=== PATIENT | female | born 1995 | race Caucasian/White ===

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

== ENCOUNTER 2021-01-04 20:03 | Outpatient (CLI) | payer MEDICAID ==
[~2021-01-04] VITALS: Ht 170.2 cm; Wt 125.9 kg
[2021-01-04] MEDS ORDERED: SERT25TA PO (20:11)
[2021-01-04 20:20] VITALS: BP 122/76
[2021-01-04 20:21] VITALS: BP 122/76
[2021-01-04 20:22] VITALS: BP 122/76
[2021-01-04] MEDS ORDERED: ACETAMINOPHEN 500 MG TAB (TYLENOL) ONE (21:11)
[2021-01-04] MEDS ORDERED: CYCLOBENZAPRINE 10 MG (FLEXERIL) TAB ONE (21:11)
[2021-01-04] MEDS ORDERED: ACETAMINOPHEN 500 MG TAB (TYLENOL) PO ONE (21:15)
[2021-01-04] MEDS ORDERED: CYCLOBENZAPRINE 10 MG (FLEXERIL) TAB PO SCH (21:15)
--- NOTE | 2021-01-04 21:22 | Discharge Inst-Simple/Standard ---
Discharge Inst-Standard Reconcile Patient Problems Problems Reviewed?: Yes Discharge Medications New, Converted or Re-Newed RX: Call to Patients Pharmacy Patient Instructions/Follow Up Plan of Care/Instructions/FU: Continue follow-up with OB as scheduled. Report to nearest emergency departmnt for vaginal bleeding, loss of fluid per vagina, decreased/absent movements, or other concerns Activity as Tolerated: Yes Discharge Diet: No Restrictions Return to The Hospital For: Report to nearest emergency departmnt for vaginal bleeding, loss of fluid per vagina, decreased/absent movements, or other concerns KIRILL TERESA MD Jan 04, 2021 21:22
[2021-01-04 21:24] LABS: CLARITY,URINE CLEAR; COLOR,URINE YELLOW; GLUCOSE, URINE (UA) NEGATIVE (NEGATIVE); KETONES,URINE 1+ (NEGATIVE); LEUKOCYTE ESTERASE ,URINE NEGATIVE (NEGATIVE); NITRITE,URINE NEGATIVE (NEGATIVE); PH,URINE 6.5 (5-9); PROTEIN,URINE TRACE (NEGATIVE)
--- NOTE | 2021-01-04 21:31 | OB Triage Report ---
Standard Progress Note Progress Notes/Assess & Plan Date Seen by a Provider: Jan 04, 2021 Time Seen by a Provider: 21:00 Expected Date of Delivery: Apr 03, 2021 Gestational Age in Weeks: 27 Gestational Age in Days: 2 LMP/YAMILA Comment: YAMILA: 04/03/2021 Progress/Assessment & Plan HPI: Patient is a 25 yo who presents for lower back and abdominal pain. Reports fall on her bottom 5 days ago on a slippery floor. No abdominal trauma. Lower back pain has been persistent since that time. However, she began noting lower back pain that radiates to her upper abdomen for the past 3 days. Pain feels like contractions, and occurs about every 10 minutes. She denies abnormal vaginal discharge, vaginal bleeding, or LOF. Denies dysuria or hematuria. Notes usual movements. Physical Exam Vital Signs 01/04/21 01/04/21 20:21 20:22 Temp 36.7 Pulse 100 Resp 18 B/P (MAP) 122/76 (91) Pulse Ox 98 O2 Delivery Room Air Gen: resting well in bed. No apparent distress Resp: normal effort, symmetric chest rise Heart: Normal rate and peripheral perfusion FHR: 150 bpm, mod mitra, + accels, int variable decels consistent with GA SVE: //hi Laboratory Tests Test 01/04/21 21:10 Range/Units Urine Color YELLOW Urine Clarity CLEAR Urine pH 6.5 5-9 Urine Specific [place] 1.025 H 1.016-1.022 Urine Protein TRACE H NEGATIVE Urine Glucose (UA) NEGATIVE NEGATIVE Urine Ketones 1+ H NEGATIVE Urine Nitrite NEGATIVE NEGATIVE Urine Bilirubin 2+ H NEGATIVE Urine Urobilinogen 1.0 < = 1.0 MG/DL Urine Leukocyte Esterase NEGATIVE NEGATIVE Urine RBC (Auto) NEGATIVE NEGATIVE Urine RBC RARE /HPF Urine WBC 0-2 /HPF Urine Squamous Epithelial Cells 0-2 /HPF Urine Crystals PRESENT H /LPF Urine Amorphous Sediment FEW NEDA URATES H /LPF Urine Bacteria TRACE /HPF Urine Casts NONE /LPF Urine Mucus SMALL H /LPF Urine Culture Indicated NO A/P: 25 yo with IUP at 27w2d who presents for lower back and abdominal pain - SVE as above without concern for labor - Pain improved with Tylenol/Flexeril in triage - UA as above + ketones - Given recent fall and onset of symptoms, likely musculoskeletal pain - Supportive management discussed including Tylenol PRN, warm bath, rest. Encouraged adequate PO hydration - Prescription for Flexeril called to pt pharmacy - Pt discharged with instructions for continued outpatient follow-up with OB. Re turn precautions provided Final Diagnosis Musculoskeletal pain Back pain Abdominal pain KIRILL TERESA MD Jan 04, 2021 21:31
[2021-01-04 22:15] LABS: AMORPHOUS SEDIMENT,UR FEW AMOR URATES /LPF; BACTERIA,URINE TRACE /HPF; RBC,URINE RARE /HPF; SQUAMOUS EPITHELIAL CELL,UR 0-2 /HPF; WBC,URINE 0-2 /HPF
[2021-01-04 22:40] VITALS: BP 121/69
[2021-01-05 10:03] LABS: BILIRUBIN,URINE 2+ (NEGATIVE)
== END 2021-01-04 22:52 | disposition home or self-care (01) ==
LOC: WSo 20:03 → LDRP 20:03 → WSo 22:52
PROVIDERS: ATTEND Obstetrics & Gynecology
DX: O26.892 Other specified pregnancy related conditions, second trimester (principal); M54.50 Low back pain, unspecified; R10.9 Unspecified abdominal pain; Z3A.23 23 weeks gestation of pregnancy; W19.XXXA Unspecified fall, initial encounter
CPT/HCPCS: 81000; G0463; 99214

== ENCOUNTER 2021-12-12 17:12 | Emergency (ER) | payer MEDICAID ==
[~2021-12-12] VITALS: Ht 170 cm; Wt 131.8 kg
[~2021-12-12 17:12] MED LIST changes: +SERT25TA PO
--- NOTE | 2021-12-12 17:29 | ED Abdominal Pain ---
General Chief Complaint: OB < 20 WEEKS Stated Complaint: 8 WKS ,N/V,HEADACHE,BODY ACHES Nursing Triage Note: ARRIVED VIA AMB TO ROOM 07 WITH COMPLAINTS OF N/V AND BODY ACHES STARTING TODAY. PT IS 8 WEEKS GESTATION. History of Present Illness Date Seen by Provider: Dec 12, 2021 Time Seen by Provider: 17:29 Initial Comments Patient reports that she has had nausea, vomiting and body aches that started today. Is currently 8 weeks . . Denies complaints. Has been unable to keep much down today. Denies recent sick contacts that she is aware of. Denies exposure to COVID. Timing/Duration: 1 Day Severity/Quality: Mild Location: Epigastric Radiation: No Radiation Activities at Onset: None Modifying Factors: Worsens With Eating; Improves With Resting Associated Symptoms: Fever/Chills (possible fever earlier); No Fatigue, No Headache; Nausea/Vomiting Allergies and Home Medications Allergies Coded Allergies: No Known Drug Allergies (Unverified , 08/06/15) Patient Home Medication List Home Medication List Reviewed: Yes Ondansetron (Ondansetron Odt) 4 Mg Tab.rapdis, 4 MG PO Q6H PRN for NA USEA/VOMITING Prescribed by: Terrie Bhatt on 12/12/211956 Discontinued Medications Sertraline HCl (Zoloft) 25 Mg Tablet, 25 MG PO, (Reported) Discontinued Reason: No Longer Taking Entered as Reported by: AGUSTIN STEIN on 01/04/212010 Last Action: Discontinued Review of Systems Review of Systems Constitutional: chills; No dizziness, No fever; malaise EENTM: No Symptoms Reported Respiratory: No Symptoms Reported Cardiovascular: No Symptoms Reported Gastrointestinal: Abdominal Pain; Denies Diarrhea; Nausea, Vomiting Genitourinary: Denies Burning, Denies Frequency, Denies Urgency Musculoskeletal: No back pain; joint pain, muscle pain Skin: no symptoms reported Psychiatric/Neurological: Denies Headache, Denies Tingling, Denies Weakness All Other Systems Reviewed Negative Unless Noted: Yes Past Eyensjl-Vzbhfi-Dpebaw Hx Patient Social History Tobacco Use?: No Substance use?: No Alcohol Use?: No Past Medical History Appendectomy, Gallbladder Expected Date of Delivery: Jul 22, 2022 Reproductive Disorders: No Female Reproductive Disorders: Denies Family Medical History Reviewed Nursing Family Hx Hypercholesterolemia 19 FATHER Hypertension 19 FATHER Physical Exam Vital Signs Vital Signs - First Documented 12/12/21 17:15 Temp 36.4 Pulse 101 Resp 16 B/P (MAP) 150/81 (104) Pulse Ox 97 O2 Delivery Room Air Capillary Refill : Less Than 3 Seconds Height/Weight/BMI Height: 5'6.00" Weight: 208lbs. 0.0oz. 94.647165qf; 45.00 BMI Method:Stated General Appearance: WD/WN, no apparent distress Neck: non-tender, full range of motion, supple, normal inspection Respiratory: chest non-tender, lungs clear, normal breath sounds, no respiratory distress, no accessory muscle use Cardiovascular: regular rate, rhythm, no edema Gastrointestinal: normal bowel sounds, soft, tenderness (epigastric) Extremities: normal range of motion, non-tender Back: normal inspection Neurologic/Psychiatric: alert, normal mood/affect, oriented x 3 Skin: normal color, warm/dry Progress/Results/Core Measures Results/Orders Lab Results Laboratory Tests Test 12/12/21 17:55 12/12/21 19:10 Range/Units White Blood Count 8.6 4.3-11.0 10^3/uL Red Blood Count 4.79 3.80-5.11 10^6/uL Hemoglobin 12.4 11.5-16.0 g/dL Hematocrit 37 35-52 % Mean Corpuscular Volume 78 L 80-99 fL Mean Corpuscular Hemoglobin 26 25-34 pg Mean Corpuscular Hemoglobin Concent 33 32-36 g/dL Red Cell Distribution Width 13.8 10.0-14.5 % Platelet Count 243 130-400 10^3/uL Mean Platelet Volume 9.8 9.0-12.2 fL Immature Granulocyte % (Auto) 0 % Neutrophils (%) (Auto) 78 H 42-75 % Lymphocytes (%) (Auto) 15 12-44 % Monocytes (%) (Auto) 6 0-12 % Eosinophils (%) (Auto) 2 0-10 % Basophils (%) (Auto) 0 0-10 % Neutrophils # (Auto) 6.7 1.8-7.8 10^3/uL Lymphocytes # (Auto) 1.3 1.0-4.0 10^3/uL Monocytes # (Auto) 0.5 0.0-1.0 10^3/uL Eosinophils # (Auto) 0.2 0.0-0.3 10^3/uL Basophils # (Auto) 0.0 0.0-0.1 10^3/uL Immature Granulocyte # (Auto) 0.0 0.0-0.1 10^3/uL Sodium Level 134 L 135-145 MMOL/L Potassium Level 3.7 3.6-5.0 MMOL/L Chloride Level 103 98-107 MMOL/L Carbon Dioxide Level 22 21-32 MMOL/L Anion Gap 9 5-14 MMOL/L Blood Urea Nitrogen 8 7-18 MG/DL Creatinine 0.69 0.60-1.30 MG/DL Estimat Glomerular Filtration Rate 124 BUN/Creatinine Ratio 12 Glucose Level 90 70-105 MG/DL Calcium Level 8.9 8.5-10.1 MG/DL Corrected Calcium 9.1 8.5-10.1 MG/DL Total Bilirubin 0.8 0.1-1.0 MG/DL Aspartate Amino Transf (AST/SGOT) 15 5-34 U/L Alanine Aminotransferase (ALT/SGPT) 17 0-55 U/L Alkaline Phosphatase 80 40-136 U/L Total Protein 6.7 6.4-8.2 GM/DL Albumin 3.7 3.2-4.5 GM/DL Lipase 9 8-78 U/L Urine Color YELLOW Urine Clarity CLEAR Urine pH 6.0 5-9 Urine Specific [place] >=1.030 1.016-1.022 Urine Protein TRACE H NEGATIVE Urine Glucose (UA) NEGATIVE NEGATIVE Urine Ketones 1+ H NEGATIVE Urine Nitrite NEGATIVE NEGATIVE Urine Bilirubin 1+ H NEGATIVE Urine Urobilinogen 1.0 < = 1.0 MG/DL Urine Leukocyte Esterase NEGATIVE NEGATIVE Urine RBC (Auto) NEGATIVE NEGATIVE Urine RBC 0-2 /HPF Urine WBC NONE /HPF Urine Squamous Epithelial Cells 10-25 H /HPF Urine Crystals NONE /LPF Urine Bacteria FEW H /HPF Urine Casts NONE /LPF Urine Mucus LARGE H /LPF Urine Culture Indicated NO My Orders Orders - TERRIE BHATT APRN Cbc With Automated Diff (12/12/21 17:29) Comprehensive Metabolic Panel (12/12/21 17:29) Lipase (12/12/21 17:29) Ns Iv 1000 Ml (Sodium Chloride 0.9%) (12/12/21 17:30) Ondansetron Injection (Zofran Injectio (12/12/21 17:30) Ua Culture If Indicated (12/12/21 18:22) Ns Iv 1000 Ml (Sodium Chloride 0.9%) (12/12/21 19:30) Medications Given in ED Current Medications Medications Dose Ordered Sig/Osmani Route Start Time Stop Time Status Last Admin Dose Admin Ondansetron HCl 4 mg ONCE ONCE IVP 12/12/21 17:30 12/12/21 17:31 DC 12/12/21 17:57 4 MG Vital Signs/I&O 12/12/21 17:15 Temp 36.4 Pulse 101 Resp 16 B/P (MAP) 150/81 (104) Pulse Ox 97 O2 Delivery Room Air Blood Pressure Mean: 104 Progress Progress Note : Progress Note Patient is currently 8 weeks . Denies complaints. C/O nausea and vomiting and unable to keep anything down. . Does not think that this is morning sickness. Will check labs and reassess. 1950: Spoke to patient in regards to labs. Reports that she is feeling a little better at this time. States that she does not feel dizzy when she is up walking around now. Will finish second liter of fluids and then send home. Home discharge instructions were reviewed with patient. Will start nausea medication in addition. Reasons to return to the ER were discussed with patient. Departure Impression Primary Impression: Viral syndrome Disposition: HOME, SELF-CARE Condition: Stable Departure-Patient Inst. Decision time for Depature: 19:56 Referrals: AMAIRANI EDGE DO (PCP/Family) Primary Care Physician Patient Instructions: Viral Syndrome (DC) Add. Discharge Instructions: 1. Home and rest. 2. Push fluids. 3. Tylenol as needed for pain. 4. Follow up with PCP as needed. 5. [place] diet and advance as tolerated. 6. Follow up with OB. 7. Return here if worse or concerns. 8. Zofran as needed for nausea. All discharge instructions reviewed with patient and/or family. Voiced understanding. Scripts Ondansetron (Ondansetron Odt) 4 Mg Tab.rapdis 4 MG PO Q6H PRN for NAUSEA/VOMITING, #8 TAB 0 Refills Prov: TERRIE BHATT APRN 12/12/21 TERRIE BHATT APRN Dec 12, 2021 17:29
[2021-12-12] MEDS ORDERED: ONDANSETRON 4 MG/2 ML (SDV) Z0FRAN IVP ONE (17:30)
[2021-12-12] MEDS ORDERED: NS IV 1000 ML 1,000 ML IV SCH ×2 (17:30→19:30)
[2021-12-12 18:12] LABS: BASOPHILS % (AUTO) 0 % (0-10); EOSINOPHILS # (AUTO) 0.2 10^3/uL (0.0-0.3); EOSINOPHILS % (AUTO) 2 % (0-10); HEMATOCRIT 37 % (35-52); HEMOGLOBIN 12.4 g/dL (11.5-16.0); LYMPHOCYTES # (AUTO) 1.3 10^3/uL (1.0-4.0); LYMPHOCYTES % (AUTO) 15 % (12-44); MEAN CORPUSCULAR HEMOGLOBIN 26 pg (25-34); MEAN CORPUSCULAR HGB CONC 33 g/dL (32-36); MEAN CORPUSCULAR VOLUME 78 fL (80-99); MEAN PLATELET VOLUME 9.8 fL (9.0-12.2); MONOCYTES # (AUTO) 0.5 10^3/uL (0.0-1.0); MONOCYTES % (AUTO) 6 % (0-12); NEUTROPHILS # (AUTO) 6.7 10^3/uL (1.8-7.8); NEUTROPHILS % (AUTO) 78 % (42-75); PLATELET COUNT 243 10^3/uL (130-400); WHITE BLOOD COUNT 8.6 10^3/uL (4.3-11.0)
[2021-12-12 18:22] LABS: ALBUMIN 3.7 GM/DL (3.2-4.5); POTASSIUM 3.7 MMOL/L (3.6-5.0)
[2021-12-12 18:24] LABS: CALCIUM 8.9 MG/DL (8.5-10.1)
[2021-12-12 18:25] LABS: TOTAL PROTEIN 6.7 GM/DL (6.4-8.2)
[2021-12-12 18:27] LABS: BILIRUBIN,TOTAL 0.8 MG/DL (0.1-1.0)
[2021-12-12 18:29] LABS: CREATININE SERUM 0.69 MG/DL (0.60-1.30)
[2021-12-12 19:21] LABS: CLARITY,URINE CLEAR; COLOR,URINE YELLOW; GLUCOSE, URINE (UA) NEGATIVE (NEGATIVE); KETONES,URINE 1+ (NEGATIVE); LEUKOCYTE ESTERASE ,URINE NEGATIVE (NEGATIVE); NITRITE,URINE NEGATIVE (NEGATIVE); PROTEIN,URINE TRACE (NEGATIVE)
[2021-12-12 19:41] LABS: BACTERIA,URINE FEW /HPF; BILIRUBIN,URINE 1+ (NEGATIVE); RBC,URINE 0-2 /HPF
[2021-12-12] MEDS ORDERED: ONDA4TAB11 PO (19:57)
[2021-12-12 20:35] VITALS: BP 144/68
== END 2021-12-12 20:35 | disposition home or self-care (01) ==
LOC: EDUNIT# 17:12 → ER 17:14
DX: O98.511 Other viral diseases complicating pregnancy, first trimester (principal); O21.9 Vomiting of pregnancy, unspecified; Z3A.08 8 weeks gestation of pregnancy; Z28.310 Unvaccinated for COVID-19
CPT/HCPCS: 36415; 80053; 81000; 83690; 85025; 99282

== ENCOUNTER 2022-01-12 15:09 | Emergency (ER) | payer MEDICAID ==
[~2022-01-12] VITALS: Ht 170.2 cm; Wt 129.3 kg
[~2022-01-12 15:09] MED LIST changes: +ONDA4TAB11 PO
--- NOTE | 2022-01-12 15:57 | ED GU-Female ---
General Chief Complaint: OB < 20 WEEKS Stated Complaint: FALL 13 WKS PREG Nursing Triage Note: PT AMB TO RM 3 W C/O LOWER BACK PAIN, ABD CRAMPING, AND SPOTTING X20 MINS THIS AM D/T A FALL AT [facility] YESTERDAY AT APPROX 1840. PT REPORTS SHE SLIPPED ON WATER, LANDED IN A SPLIT LEG POSITION. PT APPROX 13 WKS . Source: patient Exam Limitations: no limitations History of Present Illness Date Seen by Provider: Jan 12, 2022 Time Seen by Provider: 15:38 Initial Comments 27you female with care through Dr Cruz. States she was walking at [facility] yesterday and slipped in a puddle of water. She states she slipped and fell almost doing "the splits". She states she feels like she hurt her abdomen - subsequently had lower abdominal cramping that felt worse than when she has her periods. She states she has been taking tylenol and last dose was this morning. Has continues to cramp. Had a short amount of time of bleeding - bright red blood - lasted 20 minutes. Nothing further. No recent sexual intercourse. No abnormal vaginal discharge. Endorses dysuria - but states she has this all the time. No other complaint of recent illness or injury. Timing/Duration: yesterday Severity/Quality: moderate Location: suprapubic (cramping) Radiation: none Activities at Onset: other (walking in [facility]) Prior Genitourinary Problems: none Modifying Factors: Improves With Other (tylenol) Associated Symptoms: denies symptoms Allergies and Home Medications Allergies Coded Allergies: No Known Drug Allergies (Unverified , 08/06/15) Patient Home Medication List Home Medication List Reviewed: Yes Ondansetron (Ondansetron Odt) 4 Mg Tab.rapdis, 4 MG PO Q6H PRN for NAUSEA/VOMITING Prescribed by: Terrie Polk on 12/12/211956 Review of Systems Review of Systems Constitutional: see HPI EENTM: no symptoms reported Respiratory: no symptoms reported Cardiovascular: no symptoms reported Gastrointestinal: abdominal pain Genitourinary: other (scant vaginal spotting yesterday "about 20 minutes") Expected Date of Delivery: Jul 21, 2022 Musculoskeletal: back pain Skin: no symptoms reported Psychiatric/Neurological: No Symptoms Reported All Other Systemes Reviewed Negative Unless Noted: Yes Past Stwedls-Acgzlx-Ppyvwl Hx Patient Social History Tobacco Use?: No Use of E-Cig and/or Vaping dev: No Substance use?: No Alcohol Use?: No Immunizations Up To Date Influenza Vaccine Up-to-Date: No; Not Current First/Initial COVID19 Vaccinat: NONE Second COVID19 Vaccination Mehul: NONE Third COVID19 Vaccination Date: NONE COVID19 Vaccine Production Department Supervisor: NONE Past Medical History Appendectomy, Gallbladder Expected Date of Delivery: Jul 21, 2022 Last Menstrual Period: Oct 05, 2021 Reproductive Disorders: No Female Reproductive Disorders: Denies Family Medical History Hypercholesterolemia 19 FATHER Hypertension 19 FATHER Physical Exam Vital Signs Vital Signs - First Documented 01/12/22 15:18 Temp 35.9 Pulse 91 Resp 20 B/P (MAP) 133/77 (95) Pulse Ox 100 O2 Delivery Room Air Capillary Refill : Less Than 3 Seconds Height, Weight, BMI Height: 5'6.00" Weight: 208lbs. 0.0oz. 94.054460qz; 44.00 BMI Method:Stated General Appearance: WD/WN, no apparent distress, obese HEENT: normal ENT inspection Neck: full range of motion Cardiovascular: regular rate, rhythm Respiratory: lungs clear, normal breath sounds, no respiratory distress, no accessory muscle use Gastrointestinal: normal bowel sounds, non tender, soft Extremities: non-tender, normal inspection, no pedal edema, no calf tenderness Neurologic/Psychiatric: alert, normal mood/affect, oriented x 3 Skin: normal color, warm/dry Progress/Results/Core Measures Suspected Sepsis SIRS Temperature: Pulse: 91 Respiratory Rate: 20 Blood Pressure 133 /77 Mean: 95 Results/Orders Lab Results Laboratory Tests Test 01/12/22 15:53 Range/Units Urine Color YELLOW Urine Clarity CLEAR Urine pH 6.0 5-9 Urine Specific [place] >=1.030 1.016-1.022 Urine Protein NEGATIVE NEGATIVE Urine Glucose (UA) NEGATIVE NEGATIVE Urine Ketones 1+ H NEGATIVE Urine Nitrite NEGATIVE NEGATIVE Urine Bilirubin NEGATIVE NEGATIVE Urine Urobilinogen 0.2 < = 1.0 MG/DL Urine Leukocyte Esterase TRACE H NEGATIVE Urine RBC (Auto) NEGATIVE NEGATIVE Urine RBC 0-2 /HPF Urine WBC 10-25 H /HPF Urine Squamous Epithelial Cells 0-2 /HPF Urine Crystals NONE /LPF Urine Bacteria FEW H /HPF Urine Casts NONE /LPF Urine Mucus NEGATIVE /LPF Urine Culture Indicated YES My Orders Orders - BORIS BEAUCHAMP MD Ua Culture If Indicated (01/12/22 15:48) Urine Culture (01/12/22 15:53) Vital Signs/I&O 01/12/22 15:18 Temp 35.9 Pulse 91 Resp 20 B/P (MAP) 133/77 (95) Pulse Ox 100 O2 Delivery Room Air Capillary Refill : Less Than 3 Seconds Blood Pressure Mean: 95 Progress Note : Time: 16:00 Progress Note bedside U/S to assess for FHT showed +spontaneous movement and obvious aurelio quate FHT's. Departure Impression Primary Impression: Abdominal pain Qualified Codes: R10.9 - Unspecified abdominal pain Additional Impressions: 13 weeks gestation of Asymptomatic bacteriuria antepartum Disposition: 01 HOME, SELF-CARE Condition: Stable Departure-Patient Inst. Decision time for Depature: 16:12 Referrals: ARMIDA CRUZ MD (PCP/Family) Primary Care Physician Patient Instructions: Asymptomatic Bacteriuria Add. Discharge Instructions: Drink plenty fluids to stay well-hydrated. You do have evidence of bacteria and white blood cells in her urine, but that and the fall could be causing your cramping. Take the antibiotics as prescribed and finish the entire course. Take 2 extra strength Tylenol tablets every 6 hours as needed for cramping. Back to the emergency room if you have worsening abdominal cramping especially with fever, vomiting or any other emergent, concerning symptoms. Please keep your follow-up appointment with Dr. Cruz as scheduled. Scripts Nitrofurantoin Monohyd/M-Cryst (Macrobid 100 mg Capsule) 100 Mg Capsule 1 TAB PO BID for 5 Days, #10 CAP Prov: BORIS BEAUCHAMP MD 01/12/22 Copy Copies To 1: ARMIDA CRUZ MD, KATHRYN M MD Jan 12, 2022 15:57
[2022-01-12 16:03] LABS: BILIRUBIN,URINE NEGATIVE (NEGATIVE); CLARITY,URINE CLEAR; COLOR,URINE YELLOW; GLUCOSE, URINE (UA) NEGATIVE (NEGATIVE); KETONES,URINE 1+ (NEGATIVE); LEUKOCYTE ESTERASE ,URINE TRACE (NEGATIVE); NITRITE,URINE NEGATIVE (NEGATIVE); PROTEIN,URINE NEGATIVE (NEGATIVE)
[2022-01-12 16:09] LABS: RBC,URINE 0-2 /HPF
[2022-01-12 16:10] LABS: BACTERIA,URINE FEW /HPF; SQUAMOUS EPITHELIAL CELL,UR 0-2 /HPF
[2022-01-12] MEDS ORDERED: NITR-65 PO (16:18)
[2022-01-12 16:32] VITALS: BP 128/81
== END 2022-01-12 16:33 | disposition home or self-care (01) ==
LOC: EDUNIT# 15:09 → ER 15:12
DX: O26.891 Other specified pregnancy related conditions, first trimester (principal); R10.30 Lower abdominal pain, unspecified; R82.71 Bacteriuria; E66.9 Obesity, unspecified; Z28.310 Unvaccinated for COVID-19; Z3A.13 13 weeks gestation of pregnancy; W01.0XXA Fall on same level from slipping, tripping and stumbling without subsequent striking against object, initial encounter; Y92.512 Supermarket, store or market as the place of occurrence of the external cause; Y93.01 Activity, walking, marching and hiking
CPT/HCPCS: 81000; 87088; 99282

== ENCOUNTER → 2022-02-24 | Outpatient (CLI) | payer MEDICAID ==
[~2022-02-24] MED LIST changes: +NITR-65 PO
--- NOTE | 2022-02-24 16:11 | Diagnostic Imaging Report ---
INDICATION: survey. TECHNIQUE: Multiple real-time grayscale images were obtained over the gravid uterus. COMPARISON: None. FINDINGS: There is a single live fetus in transverse presentation with head to the maternal left. heart rate was recorded at 133 beats per minute. Placenta is anterior. No previa is identified. Amniotic fluid volume is normal. survey demonstrates kidneys, bladder and stomach to be unremarkable. brain is unremarkable. There is a four-chamber heart. There is a three-vessel cord with normal insertion. spine is unremarkable. Biometrical measurements are as follows: Biparietal 4.31 cm, age 19 weeks 1 days. Head circumference 16.95 cm, age 19 weeks 5 days. Abdominal circumference 14.50 cm, age 19 weeks 6 days. Femur length 3.18 cm, age 20 weeks 0 days. Sonographic estimate age: 19 weeks 5 days. Sonographic estimated date of delivery: 07/16/2022. Estimated Weight: 314 gm (+/- 46 gm). LMP percentile: 50%. heart rate: 133 beats per minute. number: 1 of 1. IMPRESSION: Single live IUP measuring 19 weeks 5 days gestational age with estimated date of confinement sonographically of 07/16/2022. No complicating features are detected. Dictated by: Dictated on workstation # [id number]
== END ==
LOC: RAD 10:00
PROVIDERS: ATTEND Obstetrics & Gynecology
DX: Z34.92 Encounter for supervision of normal pregnancy, unspecified, second trimester (principal); Z3A.19 19 weeks gestation of pregnancy
CPT/HCPCS: 76805

== ENCOUNTER 2022-04-03 12:17 | Outpatient (CLI) | payer MEDICAID ==
[2022-04-03] VITALS (11 sets, daily range): BP systolic 103–117; BP diastolic 51–57
[2022-04-03 13:07] LABS: BILIRUBIN,URINE NEGATIVE (NEGATIVE); CLARITY,URINE CLEAR; COLOR,URINE YELLOW; GLUCOSE, URINE (UA) NEGATIVE (NEGATIVE); KETONES,URINE NEGATIVE (NEGATIVE); LEUKOCYTE ESTERASE ,URINE TRACE (NEGATIVE); NITRITE,URINE NEGATIVE (NEGATIVE); PROTEIN,URINE NEGATIVE (NEGATIVE)
[2022-04-03 13:15] LABS: BACTERIA,URINE TRACE /HPF; WBC,URINE 0-2 /HPF
--- NOTE | 2022-04-04 08:31 | Physician Query-Final Dx ---
MELISSA,04/04/22 0831: Clinic Account Progress/Dx Physician Query: Please give diagnosis Please include # weeks gestation Date of Service Apr 03, 2022 at 12:17 AMAIRANI EDGE DO 04/07/22 1213: Clinic Account Progress/Dx DIAGNOSIS: Diagnosis 24 week IUP Elevated BP at home Nausea MELISSA,FebApr 04, 2022 08:31 AMAIRANI EDGE DO Apr 07, 2022 12:13
== END 2022-04-03 13:50 | disposition home or self-care (01) ==
LOC: LDRP 12:17 → WSo 12:17
PROVIDERS: ATTEND Obstetrics & Gynecology
DX: O16.9 Unspecified maternal hypertension, unspecified trimester (principal); Z3A.00 Weeks of gestation of pregnancy not specified
CPT/HCPCS: 81000; 99212

== ENCOUNTER 2022-06-02 10:06 | Outpatient (CLI) | payer MEDICAID ==
[~2022-06-02] VITALS: Ht 170.2 cm; Wt 132.9 kg
[2022-06-02 10:30] VITALS: BP 134/98
[2022-06-02 10:35] VITALS: BP 140/75
[2022-06-02 10:40] VITALS: BP 130/71
[2022-06-02 10:45] VITALS: BP 137/74
[2022-06-02 10:50] VITALS: BP 146/75
--- NOTE | 2022-06-03 09:10 | Physician Query-Final Dx ---
MELISSA,06/03/22 0910: Clinic Account Progress/Dx Physician Query: Please give diagnosis Please include # weeks gestation Date of Service Jun 02, 2022 at 10:06 AMAIRANI EDGE DO 06/03/22 1433: Clinic Account Progress/Dx DIAGNOSIS: Diagnosis 33 week IUP Vaginal moisture MELISSA,FebJun 03, 2022 09:10 AMAIRANI EDGE DO Jun 03, 2022 14:33
== END 2022-06-02 11:40 | disposition home or self-care (01) ==
LOC: WSo 10:06 → LDRP 10:07 → WSo 11:40
PROVIDERS: ATTEND Obstetrics & Gynecology
DX: O62.9 Abnormality of forces of labor, unspecified (principal); Z3A.33 33 weeks gestation of pregnancy
CPT/HCPCS: 99213